=== PATIENT | female | born 1975 | race Caucasian/White ===

== ENCOUNTER → 2018-05-01 13:22 | Outpatient (CLI) | payer OTHER, SELFPAY ==
[2018-05-01 15:09] LABS: Free T3 5.1 pg/mL (2.18-3.98)
== END ==
PROVIDERS: Family Provider Family Medicine; PCP Family Medicine
DX: E03.9 Hypothyroidism, unspecified (principal)
CPT/HCPCS: 36415; 84481

== ENCOUNTER 2019-01-15 13:40 | Observation (INO) | payer OTHER, SELFPAY ==
[2019-01-15] VITALS (15 sets, daily range): BP systolic 126–186; BP diastolic 66–98; PULSE 71–91; RESP 10–20; TEMP 36.6–36.8; O2SAT 95–99; BMI 31.7; BMI 38.4
--- NOTE | 2019-01-15 13:49 | EKG12_ITS ---
Test Reason : REPEAT-CP Blood Pressure : / mmHG Vent. Rate : 081 BPM Atrial Rate : 081 BPM P-R Int : 134 ms QRS Dur : 084 ms QT Int : 388 ms P-R-T Axes : 051 015 029 degrees QTc Int : 450 ms Normal sinus rhythm Moderate voltage criteria for LVH, may be normal variant Borderline ECG Confirmed by ERIK DOMINGUEZ, MIRTHA ([id number]), desk editor MARIANA CLINTON ([id number]) on 01/20/2019 10:03:04 AM Referred By: Tiffani Nguyễn Confirmed By:MIRTHA VALENCIA MD
--- NOTE | 2019-01-15 14:00 | RAD_ITS ---
STUDY: X-RAY CHEST REASON FOR EXAM: Female, 43 years old. Mid chest pain. TECHNIQUE: Single AP portable view of the chest. COMPARISON: None. FINDINGS: EKG electrodes are seen. The lungs are clear and expanded. There is no demonstrated pleural abnormality. Normal size heart. Normal mediastinum and jody. Normal visualized pulmonary arteries. Normal visualized aortic arch and descending thoracic aorta. There are diffuse degenerative changes of the visualized thoracic spine. Normal visualized ribs, clavicles, and shoulders. There is no demonstrated abnormality of the visualized soft tissue structures of the upper abdomen. RAD/Chest 1 View (Portable) IMPRESSION: Normal x-ray examination of the chest. Electronically Signed: iVc Singleton, at 14:14 EDT , Service support ,
--- NOTE | 2019-01-15 14:04 | ED.DCSUM_ITS ---
- ER Visit Summary Date of Service: 01/15/19 Chief Complaint: Chest pain History of Present Illness: The patient is a 43 F with history of hypertension and valve problems presents to the emergency department chest pain. Patient states she was in her normal state of health. On Sunday evening, she had a s ubsternal heaviness that radiated into her back into her neck. She states it lasted about 2 hours. It then went away. She states that the symptoms returned today. She was feeling mildly short of breath. She denies any history of coronary vascular disease herself. There is a strong family history. She does not smoke. She states her blood pressure was also elevated at 190/100. She has not had any exertional pain up until today. She is otherwise been in her normal state of health. She is been compliant with her medications. Physical Examination: Vital signs reviewed General: Well-nourished, well-developed Head: Normocephalic, atraumatic Eyes: Pupils equal and reactive, extraocular muscles intact Neck, supple, no lymphadenopathy Heart: Regular rate and rhythm Respiratory: No distress, clear bilaterally Abdomen: Soft, nontender, nondistended, no peritoneal signs Back: Nontender Extremities: Nontender, no edema, no cords Skin: Normal color no rash Neuro: Alert and oriented, no focal or lateralizing deficits Test Results: [] Emergency Department Course and Treatment: EKG was obtained on patient arrival. There was some elevated voltage consistent with LVH. There was no acute ischemic change. The patient has had intermittent pain for 3 days. She is low risk, but not no risk. She has a heart score of 3. With one nitro, she is totally pain-free. Initial enzymes were negative. D-dimer was negative. I did discuss options with the patient. She wants to attempt outpatient therapy. I am going to do a repeat troponin testing at the 3-hour david. I do feel that this is negative, safely can safely be discharged with outpatient stress testing. She is comfortable with this plan of care. Treatment Plan: [] Disposition: Pending Impression: 1. Chest pain This note was generated with [employer] software. It may contain incorrect words, spelling, and punctuation that were not noted in review of the chart prior to signing ED Disposition - Plan for ED Patient: Instructions: ED Chest Pain Atypical Unkn Cause Referrals: Isai Fletcher, [Primary Care Provider] -
[2019-01-15 14:16] LABS: Absolute Lymphocyte Count 2.91 X10^3/ul (0.83-4.51); Absolute Neutrophil Count 4.1 X10^3/uL (2.0-7.7); Basophil# 0.02 X10^3/uL; Basophil% 0.3 % (0-1); Eosinophil# 0.17 X10^3/uL; Eosinophils% 2.2 % (0-5); Hemoglobin 13.7 g/dl (12.0-15.0); Lymphocyte # 2.91 X10^3/ul (4.0); Lymphocyte % 37.5 % (19-41); Mean Corp Hgb Conc 34.3 g/gl (32-36); Mean Corpuscular Volume 81.8 fL (81-99); Mean Platelet Vol. 9.5 fl (6.2-12.0); Monocyte# 0.52 X10^3/uL; Monocyte% 6.7 % (0-10); Neutrophil # 4.13 X10^3/uL (2.7-7.7); POSITIVE COUNT NO; POSITIVE DIFFERENTIAL NO; POSITIVE MORPHOLOGY NO; Platelet Count 300 K/mm3 (150-450); RBC Distribution Width CV 12.7 % (11.6-14.6); RBC Distribution Width SD 37.6 fl (35.1-43.9); Red Blood Count 4.89 M/mm3 (4.2-5.4); White Blood Count 7.8 K/mm3 (4.4-11.0)
[2019-01-15 14:27] LABS: Anion Gap 8 (5-15); BUN 10 mg/dL (7-18); BUN/Creat Ratio 16.2 RATIO (10-20); Chloride 107 mmol/L (98-107); Creatinine, Serum 0.62 mg/dL (0.55-1.02); EST Glomerular Filtration Rate 112 mL/min (>60); Est Glom Filt Rate - Afr Amer 136 mL/min (>60); Estimated Creatinine Clearance 119.24 ml/min; Glucose 108 mg/dL (74-106); Potassium 3.7 mmol/L (3.5-5.1); Sodium Level 142 mmol/L (136-145)
[2019-01-15 14:29] LABS: D-Dimer Quantitative (DVT/PE) 0.32 FEU/ug/m (0.27-0.49)
[2019-01-15] MEDS: Aspirin 81 MG TAB.CHEW 324 MG PO (14:45)
--- NOTE | 2019-01-15 14:50 | EKG12_ITS ---
Test Reason : CP Blood Pressure : / mmHG Vent. Rate : 088 BPM Atrial Rate : 088 BPM P-R Int : 126 ms QRS Dur : 092 ms QT Int : 352 ms P-R-T Axes : 062 023 044 degrees QTc Int : 425 ms Normal sinus rhythm Moderate voltage criteria for LVH, may be normal variant Borderline ECG Confirmed by ERIK DOMINGUEZ, MIRTHA ([id number]), features editor MARIANA CLINTON ([id number]) on 01/20/2019 10:16:39 AM Referred By: Tiffani Nguyễn Confirmed By:MIRTHA VALENCIA MD
[2019-01-15 14:52] LABS: BNP,B-Type NATRIURETIC PEPTIDE 26.2 pg/mL (0-100)
--- NOTE | 2019-01-15 20:37 | PCM.HP.STD ---
Problem List (1) Chest pain Status: Acute Qualifiers: Ischemic chest pain type: unspecified angina pectoris type (2) Hypertension Status: Chronic Qualifiers: Hypertension type: essential hypertension Qualified Code(s): I10 - Essential (primary) hypertension (3) Mitral valve prolapse Status: Chronic History of Present Illness Date of Admission: 01/15/19 Chief Complaint: chest pain The patient is a 43 year old F past medical history of hypertension, mitral valve prolapse who comes in with complaints of chest pain ongoing for 3 days. Patient used to follow Dr. Manrique has since been following the nurse practitioner. She comes in with complaints of chest pain that happened suddenly, radiated to both shoulders and her back, associated with some diaphoresis and nausea. Chest pain lasted for a few minutes and went away. It recurred several times between Sunday and the day of admission( over 3 days). Patient states that in between her blood pressure has been elevated. Denied any pain at the time of being seen. Vitals in the ED was blood pressure 186/90, pressure at time of the scene was 146/66, heart rate of 90, SPO2 was 97% on room air, temperature was 98F. Admitting blood work was unremarkable. Troponins were negative x2. 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 Denies: Claudication, Orthopnea, Palpitations, Paroxysmal Noc. Dyspnea, Syncope Respiratory: Denies: Cough, Hemoptysis, Shortness of Breath, Shortness of breath at rest, Shortness of breath upon exertion, Sputum production Gastrointestinal: Denies: Abdominal Pain, Constipation, Nausea, Vomiting Genitourinary: Denies: Dysuria, Frequency Musculoskeletal: Denies: Joint Pain, Joint stiffness, Joint swelling, Joint Tenderness Skin: Denies: Rash, Wounds Neurological: Denies: Difficulty swallowing, Focal weakness, Numbness, Tingling Psychiatric: Denies: Anxiety, Depression, Homicidal Ideations, Suicidal Ideations Hematologic/ Lymphatic: Denies: Easy Bruising, Easy Bleeding VTE Information - Inpt Only VTE Present on Admission: No VTE Pharm Prophylaxis ordered?: Yes Patient Problems: Active and Suspected Problems Chest pain (Acute) - Physical Exam General: Alert, Oriented x3, Cooperative, No apparent distress HEENT: Atraumatic, PERRLA, EOMI, Normocephalic Oral: Moist Mucosa Neck: Supple Lungs: Clear to auscultation, Normal air movement Cardiovascular: Regular rate, Regular Rhythm, Normal S1, Normal S2, No murmurs Abdomen: Bowel Sounds Present, Soft, Non Tender, Non-Distended, No Hepato-splenomegaly Extremities: No edema Skin: No rashes Musculoskeletal: No Tenderness to Palpation of Joints or Extremities Lymphatic: No Cervical, Supraclavicular, or Inguinal Adenopathy Neurological: Cranial nerves II-XII grossly intact, Neuro grossly intact Psych/Mental Status: Normal Affect, Appropriate Vital Signs Temp Pulse Resp BP Pulse Ox 98.2 F 71 18 146/66 H 96 01/15/19 20:04 01/15/19 20:04 01/15/19 20:04 01/15/19 20:04 01/15/19 20:04 Oxygen Flow Rate (L/min) 2 Oxygen Delivery Method Room Air Weight: 92.2 kg Body Mass Index (BMI) 38.4 Laboratory Tests Past 24 Hrs 01/15/19 01/15/19 01/15/19 14:00 14:00 14:00 WBC 7.8 RBC 4.89 Hgb 13.7 Hct 40.0 MCV 81.8 MCH 28.0 MCHC 34.3 RDW 12.7 RDW Differential 37.6 Plt Count 300 MPV 9.5 Immature Gran % (Auto) 0.300 Neut % (Auto) 53.0 Lymph % (Auto) 37.5 [place] % (Auto) 6.7 Eos % (Auto) 2.2 Baso % (Auto) 0.3 Absolute Neuts (auto) 4.1 Absolute Lymphs (auto) 2.91 Total Counted Not Reportable D-Dimer Quant (PE/DVT) 0.32 Sodium 142 Potassium 3.7 Chloride 107 Carbon Dioxide 27.0 Anion Gap 8 BUN 10 Creatinine 0.62 Estim Creat Clear Calc 119.24 Est GFR (MDRD) Af Amer 136 Est GFR (MDRD) Non-Af 112 BUN/Creatinine Ratio 16.2 Glucose 108 H Calcium 9.0 Troponin I < 0.015 B-Natriuretic Peptide 01/15/19 01/15/19 14:00 16:30 WBC RBC Hgb Hct MCV MCH MCHC RDW RDW Differential Plt Count MPV Immature Gran % (Auto) Neut % (Auto) Lymph % (Auto) [place] % (Auto) Eos % (Auto) Baso % (Auto) Absolute Neuts (auto) Absolute Lymphs (auto) Total Counted D-Dimer Quant (PE/DVT) Sodium Potassium Chloride Carbon Dioxide Anion Gap BUN Creatinine Estim Creat Clear Calc Est GFR (MDRD) Af Amer Est GFR (MDRD) Non-Af BUN/Creatinine Ratio Glucose Calcium Troponin I < 0.015 B-Natriuretic Peptide 26.2 Assessment/Plan All Active Problems Chest pain (Acute) 43 year old F past medical history of hypertension, mitral valve prolapse who comes in with complaints of chest pain ongoing for 3 days. 1. Chest pain, concerning for possible angina, EKG shows no acute ST changes, no history of CAD, Patient has history of valvular heart disease, troponins x2 is negative Plan: Admit to PCU, monitor on telemetry, stress test in a.m., aspirin 81 mg p.o. daily, continue on home metoprolol 2. Hypertension, uncontrolled on admission, fairly controlled on the floor, Continue on home metoprolol, continue to monitor vitals 3. Mitral valve prolapse, will get 2D echo 4. Hypothyroidism, on levothyroxine, will check TSH 5. DVT PPx- early ambulation Code Visit OBSV E&M: 22695 Initial observation care L3
--- NOTE | 2019-01-15 21:03 | ECHOD_ITS ---
Reason For Study: dyspnea/SOB Procedure This was a 2D Doppler, Color Flow transthoracic echocardiogram. Exam performed in department. Left Ventricle Normal size and thickness. The estimated ejection fraction is 65 %. Normal diastology for age. No regional wall motion abnormalities noted. Right Ventricle Mildly dilated right ventricle. Normal systolic function. Atria Normal left atrium. Normal right atrium. Normal atrial septum. Mitral Valve The mitral valve is structurally normal. No prolapse or stenosis seen. Trivial mitral valve insufficiency. Tricuspid Valve Normal tricuspid valve. Trivial tricuspid valve insufficiency. Aortic Valve Trisinus/trileaflet aortic valve. Normal aortic valve. Pulmonic Valve Normal pulmonic valve. Great Vessels Normal aortic root. Normal arch. Normal inferior vena cava. Inferior vena cava collapse with sniff. Pericardium/Pleural No pericardial effusion. MMode/2D Measurements & Calculations LVIDd: 5.0 cm IVSd: 1.2 cm Ao root diam: 2.9 cm LVIDs: 3.7 cm LVPWd: 0.87 cm RVDd: 4.0 cm FS: 26.2 % LAV(MOD-bp): 37.1 ml LA A4 area: 14.0 cm2 LA dimension(2D): 3.2 cm LAV(MOD-bp) Indexed: 19.5 ml/m2 LAV(MOD-sp2): 34.5 ml LAV(MOD-sp4): 35.4 ml RA A4 area: 12.3 cm2 Time Measurements MV dec time: 0.18 sec Doppler Measurements & Calculations MV E max lior: 97.1 cm/sec Lat Peak E' Lior: 10.4 cm/sec Med Peak E' Lior: 8.5 cm/sec MV A max lior: 87.7 cm/sec E/E' lat: 9.3 E/E' med: 11.4 MV E/A: 1.1 Ao V2 max: 105.6 cm/sec LV V1 max: 107.5 cm/sec PA V2 max: 116.2 cm/sec Ao max P.4 mmHg LV V1 max P.6 mmHg Ao V2 mean: 48.4 cm/sec Ao mean P.8 mmHg Ao V2 VTI: 11.6 cm Interpretation Summary The estimated ejection fraction is 65 %. Normal diastology for age. Trivial mitral valve insufficiency. Trivial tricuspid valve insufficiency. Mildly dilated right ventricle. There is no comparison study available. Ordering Physician: Tiffani Nguyễn Referring Physician: Isai Fletcher Performed By: Lorraine Cates RDCS, RVT
[2019-01-15] MEDS: Metoprolol Tartrate 25 MG Tablet PO (22:02)
[2019-01-15 22:06] LABS: Thyroid Stim Hormone (TSH) < 0.01 uIU/mL (0.358-3.74)
[2019-01-16] VITALS (8 sets, daily range): BP systolic 125–139; BP diastolic 66–83; PULSE 60–85; RESP 16–18; TEMP 36.3–37.1; O2SAT 96–99
[2019-01-16 03:04] LABS: Hematocrit 38.2 % (37-47); Hemoglobin 12.9 g/dl (12.0-15.0); Mean Corp Hgb Conc 33.8 g/gl (32-36); Mean Corpuscular Hgb 27.7 pg (27.0-32.0); Red Blood Count 4.66 M/mm3 (4.2-5.4); White Blood Count 8.2 K/mm3 (4.4-11.0)
[2019-01-16 03:05] LABS: Mean Platelet Vol. 9.3 fl (6.2-12.0); Platelet Count 268 K/mm3 (150-450); RBC Distribution Width CV 12.8 % (11.6-14.6); RBC Distribution Width SD 37.3 fl (35.1-43.9); Scan Indicated on CBC? Y/N NO
[2019-01-16 03:07] LABS: Prothrombin Time (Protime)PT. 12.8 SECONDS (11.7-14.9)
[2019-01-16 03:08] LABS: Partial Thromboplast Time 28.1 Seconds (24.1-36.2)
[2019-01-16 03:59] LABS: Anion Gap 6 (5-15); BUN 13 mg/dL (7-18); BUN/Creat Ratio 31.8 RATIO (10-20); Calcium,Total 8.6 mg/dL (8.5-10.1); Chloride 109 mmol/L (98-107); Creatinine, Serum 0.41 mg/dL (0.55-1.02); EST Glomerular Filtration Rate 181 mL/min (>60); Est Glom Filt Rate - Afr Amer 219 mL/min (>60); Estimated Creatinine Clearance 134.88 ml/min; Glucose 115 mg/dL (74-106); Potassium 3.6 mmol/L (3.5-5.1); Sodium Level 142 mmol/L (136-145)
[2019-01-16] MEDS: Thyroid 60 MG Tablet 240 MG PO (05:42)
[2019-01-16] MEDS: Aspirin 81 MG TAB.CHEW PO (05:43)
--- NOTE | 2019-01-16 05:55 | EKG12_ITS ---
Test Reason : AM EKG Blood Pressure : / mmHG Vent. Rate : 073 BPM Atrial Rate : 073 BPM P-R Int : 140 ms QRS Dur : 086 ms QT Int : 424 ms P-R-T Axes : 052 031 039 degrees QTc Int : 467 ms Normal sinus rhythm Possible Lateral infarct , age undetermined , cannot be excluded Abnormal ECG Confirmed by ERIK DOMINGUEZ, MIRTHA ([id number]), supervising editor trailer MARIANA CLINTON ([id number]) on 01/20/2019 10:55:42 AM Referred By: Tiffani Nguyễn Confirmed By:MIRTHA VALENCIA MD
[2019-01-16 10:03] LABS: Free T3 3.1 pg/mL (2.18-3.98); T4 Free Direct 1.11 ng/dL (0.76-1.46)
--- NOTE | 2019-01-16 10:19 | STRESSREP ---
Stress Test Report Date: 01-16-19 Procedure: Exercise tolerance test/imaging study Indications: Chest pain Consent: Per the patient Procedure: The patient exercised on a Hank protocol for 1 minute not completing stage I achieving a peak heart rate of 130 bpm (73 % predicted maximal heart rate) with a peak blood pressure 164/92 mmHg and a peak MET capacity of 3 METs. The baseline ECG demonstrated normal sinus rhythm. The peak exercise ECG demonstrated no obvious ECG changes. There were no cardiac dysrhythmias pretest, during exercise, or recovery. The functional capacity was considered based. There was chest discomfort preprocedure, during exercise, and in recovery without significant change. The examination was discontinued secondary to light headed. Impression: 1. Technically adequate (percent predicted maximal heart rate greater than 85%) exercise tolerance test 2. Peak exercise ECG with no obvious ECG changes 3. There were no cardiac dysrhythmias pretest, during exercise, or recovery 4. Pharmacologic (Regadenoson) evaluation pending Procedure: Pharmacologic stress nuclear imaging study Consent: Per the patient Procedure: The patient underwent pharmacologic (Regadenoson) evaluation with a peak heart rate of 136 beats per minute (76 %predicted maximal heart rate) and a peak blood pressure of 158/82 mmHg. The baseline ECG demonstrated normal sinus rhythm. The peak pharmacologic ECG demonstrated no obvious ECG changes. There were no cardiac dysrhythmias pretest, during pharmacologic infusion, or recovery. The patient noted chest discomfort preprocedure, during infusion, and during recovery without significant change. The examination was discontinued secondary to completion of protocol. Impression: 1. Pharmacologic (Regadenoson) evaluation 2. Peak pharmacologic ECG with no obvious ECG changes. 3. There were no cardiac dysrhythmias pretest, during pharmacologic infusion, or recovery. 4. Nuclear images pending Myocardial perfusion imaging study: Technique: The patient was injected with 11.5 millicuries of technetium 99m Cardiolite and subsequently rest SPECT Cardiolite nuclear imaging was obtained in the horizontal long, vertical long, and short axis views. The patient exercised on a Hank protocol for 1 minute not completing stage I achieving a peak heart rate of 130 bpm (73 % predicted maximal heart rate) with a peak blood pressure 164/92 mmHg and a peak MET capacity of 3 METs. The patient underwent pharmacologic (Regadenoson) evaluation with a peak heart rate of 136 beats per minute (76 %predicted maximal heart rate) and a peak blood pressure of 158/82 mmHg. The patient was injected with 35.4 millicuries of technetium 99m Cardiolite and subsequently stress SPECT Cardiolite nuclear imaging was obtained in the horizontal long, vertical long, and short axis views. A gated Cardiolite study at peak stress was obtained. Interpretation: Rest and stress SPECT Cardiolite nuclear imaging status post realignment, normalization, and attenuation correction demonstrate a small area of subtle diminished tracer uptake near the apical segments without significant change between rest and stress. There is end systolic thickening and brightening. The gated Cardiolite study demonstrates myocardial thickening and inward wall motion. The reported LVEF is 70 %. Impression: 1. Rest and stress SPECT Cardiolite nuclear imaging demonstrate a small area of subtle diminished tracer uptake in the apical segments without significant change between rest and stress appearing compatible with physiologic apical thinning with no myocardial perfusion changes consider diagnostic for associated stress-induced myocardial ischemia. 2. The gated Cardiolite study reports an LVEF of 70 %. This note was generated with [employer] software. It may contain incorrect words, spelling, and punctuation that were not noted in checking the note before signing. Myocardial perfusion imaging study: Technique: The patient was injected with mCi of technetium 99m Cardiolite and subsequently rest SPECT Cardiolite nuclear imaging was obtained in the horizontal long, vertical long, and short axis views. The patient exercised on a Hank protocol for minutes completing stage achieving a peak heart rate of bpm (% predicted maximal heart rate) with a peak blood pressure mmHg and a peak MET capacity of METs. The patient was injected with mCi of technetium 99m Cardiolite and subsequently stress SPECT Cardiolite nuclear imaging was obtained in the horizontal long, vertical long, and short axis views. A gated Cardiolite study at peak stress was obtained. Interpretation: Rest and stress SPECT Cardiolite nuclear imaging status post realignment, normalization, and attenuation correction, demonstrates the appearance of relative uniform tracer uptake and myocardial perfusion appearing within normal limits. There is end systolic thickening and brightening. The gated Cardiolite study demonstrates myocardial thickening and inward wall motion. The reported LVEF is %. Impression: 1. Rest and stress SPECT Cardiolite nuclear imaging demonstrate relative uniform tracer uptake and myocardial perfusion appearing within normal limits. 2. The gated Cardiolite study reports an LVEF of %. This note was generated with [employer] software. It may contain incorrect words, spelling, and punctuation that were not noted in checking the note before signing.
--- NOTE | 2019-01-16 11:08 | DCINST_ITS ---
- Discharge Diagnoses Current Active Problems: Current Active and Chronic Problems Chest pain (Acute) Hypertension (Chronic) Mitral valve prolapse (Chronic) You will use the following diet at home:: Cardiac Your food should be the consistency of: Regular Your liquids should be the consistency of: Regular/Thin Discharge Activity: Return to Normal Activity Instructions: ED Chest Pain Atypical Unkn Cause Allergies/Adverse Reactions: Allergies Penicillins [PCN] Allergy (Verified 01/15/19 13:41) Rash Medications to take at Discharge Metoprolol Tartrate 25 tab PO QHS 01/15/19 Metoprolol Tartrate 37.5 tab PO DAILY 01/15/19 Thyroid,Pork [[place] Thyroid] 240 mg PO DAILY 01/15/19 Primary Care Physician: Isai Fletcher DO [Primary Care Provider] - Please follow up with your Primary Care Physician in: 1-2 weeks Test Results: Test results from this visit will be discussed in further detail at your follow- up appointment, if applicable. Proposed Discharge Date: 01/16/19
[2019-01-16] MEDS: Metoprolol Tartrate 25 MG Tablet 37.5 MG PO (11:53)
--- NOTE | 2019-01-16 13:28 | DS.PCM_ITS ---
<Tree Bashir - Last Filed: 01/16/19 13:24> Discharge Date and Diagnosis - Problem List Patient Problems: Active and Suspected Problems Chest pain (Acute) Date of Admission: 01/15/19 Date of Discharge: 01/16/19 - Primary Discharge Diagnosis Active and Suspected Problems Chest pain (Acute) -musculoskeletal HTN Obesity Mitral valve prolapse Hypothyroidism - Secondary Discharge Diagnosis Chronic Problems Hypertension (Chronic) Mitral valve prolapse (Chronic) Hospital Course and Treatment Imaging Results: 01/16/19 05:55 Nuclear Stress Test - Chemical [NM] AM (NON MEDS) Impression: 1. Rest and stress SPECT Cardiolite nuclear imaging demonstrate a small area of subtle diminished tracer uptake in the apical segments without significant change between rest and stress appearing compatible with physiologic apical thinning with no myocardial perfusion changes consider diagnostic for associated stress-induced myocardial ischemia. 2. The gated Cardiolite study reports an LVEF of 70 %. Echo: Interpretation Summary The estimated ejection fraction is 65 %. Normal diastology for age. Trivial mitral valve insufficiency. Trivial tricuspid valve insufficiency. Mildly dilated right ventricle. There is no comparison study available. RAD/Chest 1 View (Portable) IMPRESSION: Normal x-ray examination of the chest. Operations: None Procedures: 2-D Echocardiogram, Stress test Summary of Care Provided: Hospital course: The patient is a 43 year old F with past medical history of hypertension, mitral valve prolapse, hypothyroidism, who presented to the emergency room with complaints of chest pain for 3 days. She described it as a pressure that radiated from her midsternal region into her bilateral shoulders, back, and down the left arm. It would come and go over 3 days, and was also associated with some lightheadedness, diaphoresis, nausea, and shortness of breath especially with exertion. In the emergency room she had a negative chest x-ray, negative troponin, negative d-dimer, negative EKG. She was admitted for chest pain workup, placed on telemetry, troponins were repeated. No events on telemetry, troponins remain negative. TSH was suppressed however her free T3 and 4 were normal. BNP was negative. Stress test the following day was negative. She underwent an echocardiogram given her underlying history of mitral valve prolapse-this demonstrated no prolapse, trivial mitral valve insufficiency. Otherwise relatively normal as above. She was discharged home in stable condition. She will need to follow-up with her PCP in 1-2 weeks. This patient was seen by Tree Bashir PA-C under the supervision of Doctor Shayla. [] Patient Problems: Active and Suspected Problems Chest pain (Acute) - Physical Exam Cardiovascular: Murmur - 2/6 systolic murmur heard best alone left 4th intercostal space. Psych/Mental Status: Normal Affect, Alert and oriented to time, place, person, mood and affect Vital Signs Temp Pulse Resp BP Pulse Ox 98.7 F 79 16 139/83 H 99 01/16/19 11:32 01/16/19 11:53 01/16/19 11:32 01/16/19 11:32 01/16/19 11:32 Oxygen Flow Rate (L/min) 2 Oxygen Delivery Method Room Air Weight: 203 lb 4.259 oz Body Mass Index (BMI) 38.4 Intake and Output for Last 24 Hours 01/14/19 01/15/19 01/16/19 23:59 23:59 23:59 Intake Total 480 / 480 250 / 250 Balance 480 / 480 250 / 250 Laboratory Tests Past 24 Hrs 01/15/19 01/15/19 01/15/19 14:00 14:00 14:00 WBC 7.8 RBC 4.89 Hgb 13.7 Hct 40.0 MCV 81.8 MCH 28.0 MCHC 34.3 RDW 12.7 RDW Differential 37.6 Plt Count 300 MPV 9.5 Immature Gran % (Auto) 0.300 Neut % (Auto) 53.0 Lymph % (Auto) 37.5 [place] % (Auto) 6.7 Eos % (Auto) 2.2 Baso % (Auto) 0.3 Absolute Neuts (auto) 4.1 Absolute Lymphs (auto) 2.91 Total Counted Not Reportable PT INR APTT D-Dimer Quant (PE/DVT) 0.32 Sodium 142 Potassium 3.7 Chloride 107 Carbon Dioxide 27.0 Anion Gap 8 BUN 10 Creatinine 0.62 Estim Creat Clear Calc 119.24 Est GFR (MDRD) Af Amer 136 Est GFR (MDRD) Non-Af 112 BUN/Creatinine Ratio 16.2 Glucose 108 H Calcium 9.0 Troponin I < 0.015 B-Natriuretic Peptide TSH Free T4 Free T3 pg/dL 01/15/19 01/15/19 01/15/19 14:00 16:30 21:06 WBC RBC Hgb Hct MCV MCH MCHC RDW RDW Differential Plt Count MPV Immature Gran % (Auto) Neut % (Auto) Lymph % (Auto) [place] % (Auto) Eos % (Auto) Baso % (Auto) Absolute Neuts (auto) Absolute Lymphs (auto) Total Counted PT INR APTT D-Dimer Quant (PE/DVT) Sodium Potassium Chloride Carbon Dioxide Anion Gap BUN Creatinine Estim Creat Clear Calc Est GFR (MDRD) Af Amer Est GFR (MDRD) Non-Af BUN/Creatinine Ratio Glucose Calcium Troponin I < 0.015 < 0.015 B-Natriuretic Peptide 26.2 TSH < 0.01 L Free T4 Free T3 pg/dL 01/16/19 01/16/19 01/16/19 00:10 02:43 02:43 WBC RBC Hgb Hct MCV MCH MCHC RDW RDW Differential Plt Count MPV Immature Gran % (Auto) Neut % (Auto) Lymph % (Auto) [place] % (Auto) Eos % (Auto) Baso % (Auto) Absolute Neuts (auto) Absolute Lymphs (auto) Total Counted PT INR APTT D-Dimer Quant (PE/DVT) Sodium 142 Potassium 3.6 Chloride 109 H Carbon Dioxide 27.0 Anion Gap 6 BUN 13 Creatinine 0.41 L Estim Creat Clear Calc 134.88 Est GFR (MDRD) Af Amer 219 Est GFR (MDRD) Non-Af 181 BUN/Creatinine Ratio 31.8 H Glucose 115 H Calcium 8.6 Troponin I < 0.015 < 0.015 B-Natriuretic Peptide TSH Free T4 Free T3 pg/dL 01/16/19 01/16/19 01/16/19 02:43 02:43 02:43 WBC 8.2 RBC 4.66 Hgb 12.9 Hct 38.2 MCV 82.0 MCH 27.7 MCHC 33.8 RDW 12.8 RDW Differential 37.3 Plt Count 268 MPV 9.3 Immature Gran % (Auto) Neut % (Auto) Lymph % (Auto) [place] % (Auto) Eos % (Auto) Baso % (Auto) Absolute Neuts (auto) Absolute Lymphs (auto) Total Counted PT 12.8 INR 1.0 APTT 28.1 D-Dimer Quant (PE/DVT) Sodium Potassium Chloride Carbon Dioxide Anion Gap BUN Creatinine Estim Creat Clear Calc Est GFR (MDRD) Af Amer Est GFR (MDRD) Non-Af BUN/Creatinine Ratio Glucose Calcium Troponin I B-Natriuretic Peptide TSH Free T4 1.11 Free T3 pg/dL 3.1 Discharge Diet: Low fat/ Low Cholesterol, 2000 mg Sodium Diet Discharge Activity: Return to Normal Activity Home Medications: Medications to take at Discharge Metoprolol Tartrate 25 tab PO QHS 01/15/19 Metoprolol Tartrate 37.5 tab PO DAILY 01/15/19 Thyroid,Pork [[place] Thyroid] 240 mg PO DAILY 01/15/19 Primary Care Physician: Isai Fletcher DO [Primary Care Provider] - Please follow up with your Primary Care Physician in: 1-2 weeks Patient Instructions: ED Chest Pain Atypical Unkn Cause Disposition: Home Minutes spent on discharge:: 35 Patient Condition:: Stable Medical Necessity - Tobacco Use Smoking Status: Never smoker Tobacco Use: Non-smoker Meaningful Use Info Meaningful Use Diagnoses (Choose all that apply): None applicable <David Mcguire - Last Filed: 01/16/19 14:14> Discharge Date and Diagnosis - Primary Discharge Diagnosis Active and Suspected Problems Chest pain (Acute) - Secondary Discharge Diagnosis Chronic Problems Hypertension (Chronic) Mitral valve prolapse (Chronic) Hospital Course and Treatment Imaging Results: 01/16/19 05:55 Nuclear Stress Test - Chemical [NM] AM (NON MEDS) Procedures: 2-D Echocardiogram, Stress test Summary of Care Provided: Patient seen and examined independently. Data reviewed. I agree with the above note by the physician assistant news director. The patient is a 43 year old F presents with chest pain. D-dimer is negative and stress test was negative. Not cardiac and not due to PE. No pneumonia on x-ray to explain the pleuritic type of nature but patient reassured that this is not cardiac nor PE and a cardiac catheterization was not indicated. Patient was inquiring why she is so fatigued. Explained I could not provide concrete answer for her at this time but did recommend further follow-up. Since this is been ongoing for some time. Did inquire the patient is never had a polysomnogram, to which patient says she has not. I advised patient follow-up with her primary care doctor to see if she should be further evaluated for a polysomnogram. Unclear if patient has untreated sleep apnea that may be causing some of her fatigue but certainly polysomnogram may be helpful to at least rule that in or out as a possibility. [] - Physical Exam General: Alert, No apparent distress HEENT: Atraumatic, Normocephalic Oral: Moist Mucosa, No Gingival or Mucosal Lesions/ Ulcerations Neck: No Nodes, Thyroid Normal Size and Texture Lungs: Clear to auscultation, Normal air movement, No rhonchi, No wheeze Cardiovascular: Regular rate, Regular Rhythm, Normal S1, Normal S2, No murmurs, Murmur Abdomen: Bowel Sounds Present, Soft, Non Tender, Non-Distended, No Hepato- splenomegaly Extremities: No edema, No Calf Tenderness Psych/Mental Status: Normal Affect Vital Signs Temp Pulse Resp BP Pulse Ox 37.1 C 79 16 139/83 H 99 01/16/19 11:32 01/16/19 11:53 01/16/19 11:32 01/16/19 11:32 01/16/19 11:32 Oxygen Flow Rate (L/min) 2 Oxygen Delivery Method Room Air Weight: 92.2 kg Body Mass Index (BMI) 38.4 Intake and Output for Last 24 Hours 01/14/19 01/15/19 01/16/19 23:59 23:59 23:59 Intake Total 480 / 480 250 / 250 Balance 480 / 480 250 / 250 Laboratory Tests Past 24 Hrs 01/15/19 01/15/19 01/15/19 14:00 14:00 14:00 WBC 7.8 RBC 4.89 Hgb 13.7 Hct 40.0 MCV 81.8 MCH 28.0 MCHC 34.3 RDW 12.7 RDW Differential 37.6 Plt Count 300 MPV 9.5 Immature Gran % (Auto) 0.300 Neut % (Auto) 53.0 Lymph % (Auto) 37.5 [place] % (Auto) 6.7 Eos % (Auto) 2.2 Baso % (Auto) 0.3 Absolute Neuts (auto) 4.1 Absolute Lymphs (auto) 2.91 Total Counted Not Reportable PT INR APTT D-Dimer Quant (PE/DVT) 0.32 Sodium 142 Potassium 3.7 Chloride 107 Carbon Dioxide 27.0 Anion Gap 8 BUN 10 Creatinine 0.62 Estim Creat Clear Calc 119.24 Est GFR (MDRD) Af Amer 136 Est GFR (MDRD) Non-Af 112 BUN/Creatinine Ratio 16.2 Glucose 108 H Calcium 9.0 Troponin I < 0.015 B-Natriuretic Peptide TSH Free T4 Free T3 pg/dL 01/15/19 01/15/19 01/15/19 14:00 16:30 21:06 WBC RBC Hgb Hct MCV MCH MCHC RDW RDW Differential Plt Count MPV Immature Gran % (Auto) Neut % (Auto) Lymph % (Auto) [place] % (Auto) Eos % (Auto) Baso % (Auto) Absolute Neuts (auto) Absolute Lymphs (auto) Total Counted PT INR APTT D-Dimer Quant (PE/DVT) Sodium Potassium Chloride Carbon Dioxide Anion Gap BUN Creatinine Estim Creat Clear Calc Est GFR (MDRD) Af Amer Est GFR (MDRD) Non-Af BUN/Creatinine Ratio Glucose Calcium Troponin I < 0.015 < 0.015 B-Natriuretic Peptide 26.2 TSH < 0.01 L Free T4 Free T3 pg/dL 01/16/19 01/16/19 01/16/19 00:10 02:43 02:43 WBC RBC Hgb Hct MCV MCH MCHC RDW RDW Differential Plt Count MPV Immature Gran % (Auto) Neut % (Auto) Lymph % (Auto) [place] % (Auto) Eos % (Auto) Baso % (Auto) Absolute Neuts (auto) Absolute Lymphs (auto) Total Counted PT INR APTT D-Dimer Quant (PE/DVT) Sodium 142 Potassium 3.6 Chloride 109 H Carbon Dioxide 27.0 Anion Gap 6 BUN 13 Creatinine 0.41 L Estim Creat Clear Calc 134.88 Est GFR (MDRD) Af Amer 219 Est GFR (MDRD) Non-Af 181 BUN/Creatinine Ratio 31.8 H Glucose 115 H Calcium 8.6 Troponin I < 0.015 < 0.015 B-Natriuretic Peptide TSH Free T4 Free T3 pg/dL 01/16/19 01/16/19 01/16/19 02:43 02:43 02:43 WBC 8.2 RBC 4.66 Hgb 12.9 Hct 38.2 MCV 82.0 MCH 27.7 MCHC 33.8 RDW 12.8 RDW Differential 37.3 Plt Count 268 MPV 9.3 Immature Gran % (Auto) Neut % (Auto) Lymph % (Auto) [place] % (Auto) Eos % (Auto) Baso % (Auto) Absolute Neuts (auto) Absolute Lymphs (auto) Total Counted PT 12.8 INR 1.0 APTT 28.1 D-Dimer Quant (PE/DVT) Sodium Potassium Chloride Carbon Dioxide Anion Gap BUN Creatinine Estim Creat Clear Calc Est GFR (MDRD) Af Amer Est GFR (MDRD) Non-Af BUN/Creatinine Ratio Glucose Calcium Troponin I B-Natriuretic Peptide TSH Free T4 1.11 Free T3 pg/dL 3.1 Discharge Diet: Low fat/ Low Cholesterol, 2000 mg Sodium Diet Discharge Activity: Return to Normal Activity Disposition: Home Patient Condition:: Stable Medical Necessity - Tobacco Use Smoking Status: Never smoker Tobacco Use: Non-smoker Meaningful Use Info Meaningful Use Diagnoses (Choose all that apply): None applicable Code Visit OBSV E&M: 14990 Observation care discharge
--- NOTE | 2019-01-16 19:00 | NURSING ---
patient care and medical safety director by SN Hallie, done under the supervision of this RN.
== END 2019-01-16 11:08 | disposition home or self-care (01) ==
LOC: ED 14:46 → PCU 19:20
PROVIDERS: Physician Assistant; Admitting Provider Internal Medicine; Emergency Provider Emergency Medicine; Family Provider Family Medicine; PCP Family Medicine; Referring Provider Internal Medicine
DX: R07.89 Other chest pain (principal); I10 Essential (primary) hypertension; Z79.899 Other long term (current) drug therapy; R06.02 Shortness of breath; Z82.49 Family history of ischemic heart disease and other diseases of the circulatory system; E03.9 Hypothyroidism, unspecified; I08.1 Rheumatic disorders of both mitral and tricuspid valves
CPT/HCPCS: 36415; 71045; 78452; 80048; 83880; 84439; 84443; 84481; 84484; 85025; 85027; 85379; 85610; 85730; 93005; 93017; 93306; 99218; 99285; A9500; A4216; G0378; J2785

== ENCOUNTER 2019-01-18 19:42 | Emergency (ER) | payer OTHER, SELFPAY ==
[2019-01-15 19:50] VITALS: BMI 38.4
[2019-01-18 19:44] VITALS: BP 156/89; PULSE 85; RESP 12; TEMP 36.6; O2SAT 98; BMI 40.6
--- NOTE | 2019-01-18 19:45 | ED.RN ---
called for ekg per rn request, pulled old ekgs for
--- NOTE | 2019-01-18 20:14 | EKG12_ITS ---
Test Reason : CP Blood Pressure : / mmHG Vent. Rate : 079 BPM Atrial Rate : 079 BPM P-R Int : 142 ms QRS Dur : 088 ms QT Int : 374 ms P-R-T Axes : 048 006 023 degrees QTc Int : 428 ms Normal sinus rhythm Voltage criteria for left ventricular hypertrophy Abnormal ECG Confirmed by ERIK DOMINGUEZ, MIRTHA ([id number]), advertising editor MARIANA CLINTON ([id number]) on 01/22/2019 1:18:00 PM Referred By: /ES Confirmed By:MIRTHA VALENCIA MD
--- NOTE | 2019-01-18 20:14 | RAD_ITS ---
STUDY: X-RAY CHEST REASON FOR EXAM: Female, 43 years old. Chest pain. TECHNIQUE: Single frontal view of the chest. COMPARISON: January 15, 2019 FINDINGS: The lungs are clear and expanded. There is no demonstrated pleural abnormality. Normal size heart. Normal mediastinum and jody. Normal visualized pulmonary arteries. Normal visualized aortic arch and descending thoracic aorta. Normal visualized thoracic spine. Normal visualized ribs, clavicles, and shoulders. There is no demonstrated abnormality of the visualized soft tissue structures of the upper abdomen. RAD/Chest 1 View (Portable) IMPRESSION: Normal x-ray examination of the chest. Electronically Signed: Toña Espinoza MD at 20:48 EDT Tel , Service support ,
[2019-01-18 20:28] LABS: Absolute Lymphocyte Count 4.02 X10^3/ul (0.83-4.51); Absolute Neutrophil Count 4.7 X10^3/uL (2.0-7.7); Basophil# 0.03 X10^3/uL; Basophil% 0.3 % (0-1); Eosinophils% 2.1 % (0-5); Hematocrit 39.8 % (37-47); Hemoglobin 13.8 g/dl (12.0-15.0); Lymphocyte # 4.02 X10^3/ul (4.0); Lymphocyte % 42.1 % (19-41); Mean Corp Hgb Conc 34.7 g/gl (32-36); Mean Corpuscular Hgb 28.2 pg (27.0-32.0); Mean Corpuscular Volume 81.4 fL (81-99); Mean Platelet Vol. 9.6 fl (6.2-12.0); Monocyte# 0.64 X10^3/uL; Monocyte% 6.7 % (0-10); Neutrophil # 4.65 X10^3/uL (2.7-7.7); Neutrophil % 48.6 % (47-70); Platelet Count 281 K/mm3 (150-450); RBC Distribution Width CV 12.4 % (11.6-14.6); RBC Distribution Width SD 36.5 fl (35.1-43.9); Red Blood Count 4.89 M/mm3 (4.2-5.4); White Blood Count 9.6 K/mm3 (4.4-11.0)
[2019-01-18 20:29] LABS: POSITIVE COUNT NO; POSITIVE DIFFERENTIAL NO; POSITIVE MORPHOLOGY NO
[2019-01-18 20:32] LABS: International Normalized Ratio 0.9; Prothrombin Time (Protime)PT. 12.2 SECONDS (11.7-14.9)
[2019-01-18 20:33] LABS: Partial Thromboplast Time 28.2 Seconds (24.1-36.2)
[2019-01-18 20:36] LABS: D-Dimer Quantitative (DVT/PE) < 0.27 FEU/ug/m (0.27-0.49)
--- NOTE | 2019-01-18 20:43 | ED.RN ---
DR HEBETR NOTIFIED PT C/O FEELING LIGHT HEADED
--- NOTE | 2019-01-18 20:44 | ED.DCSUM_ITS ---
- ER Visit Summary Date of Service: 01/18/19 Chief Complaint: Chest pain and weakness History of Present Illness: The patient is a 43 F who presents with chest pain and weakness that became worse again today. Patient was recently admitted to the hospital and had a stress test which was normal. Patient states she did have difficulty on the treadmill during the stress test. Patient describes her pain as a heaviness and burning. Patient states this is over the substernal area. Patient admits to nausea but denies any vomiting. Patient admits to some shortness of breath and lightheadedness. Patient also admits to some palpitations. Patient denies any PE risk factors. Patient has a history of hyp ertension and a family history of coronary artery disease. Physical Examination: Vital signs are stable. Patient is afebrile. Patient is in no acute distress. Oral mucosa is pink and moist. Neck is supple. Trachea is midline. There is no JVD noted. Heart was regular rate and rhythm. Lungs are clear and equal bilateral. Abdomen is soft. Bowel sounds are normal. Ther e is no tenderness. There is no guarding noted. Skin is warm dry. Cranial nerves II through XII are intact. There are no focal motor or sensory deficits noted. The remaining physical exam is within normal limits. Test Results: EKG showed normal sinus rhythm with a rate of 79. There are no acute ST or T wave changes. This was unchanged compared to previous EKG dated 01/15/2019. Chest x-ray does not show any acute cardiopulmonary process. CBC was normal. Basic metabolic profile was essentially normal. PT with INR and PTT were normal. Troponin and d-dimer were normal. TSH was less than 0.01. This was similar to prior results when she was admitted to the hospital recently. Discharge summary indicates that a T3 and T4 were obtained during her last visit which were normal. Emergency Department Course and Treatment: Patient was given aspirin here. On reevaluation the patient stated she felt like she gets lightheaded whenever she moves her head. Patient was given a dose of meclizine here. Patient was advised of her lab and x-ray results. Patient was instructed to follow-up with her various exceptionalities teacher for further evaluation of her thyroid. Since the patient was recently admitted and had a recent stress test, I do not feel patient requires readmission at this time. Patient and family understood and were agr eeable with the plan. All questions were answered. Disposition: Discharge home Impression: Chest pain This note was generated with [employer] dictation software. It may contain incorrect words, spelling, and punctuation that were not noted in review of the chart prior to signing ED Disposition - Plan for ED Patient: Disposition: Home or Assisted Living Diagnosis: Chest pain Instructions: ED Chest Pain Atypical Unkn Cause Referrals: Isai Fletcher, [Primary Care Provider] - 3-5 Days Additional Instructions: Also follow-up with your various exceptionalities teacher in 3-5 days.
[2019-01-18 20:46] VITALS: BP 170/61; PULSE 78; RESP 17; O2SAT 99
[2019-01-18 21:08] VITALS: BP 145/88; PULSE 79; RESP 19; O2SAT 100
[2019-01-18 21:49] LABS: BUN 11 mg/dL (7-18); Creatinine, Serum 0.53 mg/dL (0.55-1.02); Estimated Creatinine Clearance 99.32 ml/min; Glucose 108 mg/dL (74-106)
[2019-01-18 21:50] LABS: Anion Gap 8 (5-15); BUN/Creat Ratio 20.7 RATIO (10-20); Calcium,Total 8.9 mg/dL (8.5-10.1); Chloride 108 mmol/L (98-107); EST Glomerular Filtration Rate 134 mL/min (>60); Est Glom Filt Rate - Afr Amer 162 mL/min (>60); Potassium 3.4 mmol/L (3.5-5.1); Sodium Level 143 mmol/L (136-145); Thyroid Stim Hormone (TSH) < 0.01 uIU/mL (0.358-3.74)
[2019-01-18 22:10] VITALS: BP 160/63; PULSE 86; RESP 15; O2SAT 98
[2019-01-18 23:01] VITALS: BP 141/82; PULSE 82; RESP 14; O2SAT 96
[2019-01-18] MEDS: Meclizine HCl 25 MG Tablet PO (23:01)
[2019-01-18 23:26] VITALS: BP 154/79; PULSE 82; RESP 20; O2SAT 97
--- NOTE | 2019-01-18 23:27 | ED.RN ---
THIS NURSE REVIEWED D/C INSTRUCTIONS WITH PT AND . PT VERBALIZED UNDERSTANDING OF INSTRUCTIONS. IV D/C. IV CATHETER INTACT. PT TOLERATED WELL. PT DENIES FURTHER NEEDS OR QUESTIONS AT THIS TIME.
== END 2019-01-18 23:28 | disposition home or self-care (01) ==
PROVIDERS: Emergency Provider Emergency Medicine; Family Provider Family Medicine; PCP Family Medicine
DX: R07.9 Chest pain, unspecified (principal); R42 Dizziness and giddiness; I10 Essential (primary) hypertension; I38 Endocarditis, valve unspecified; Z79.899 Other long term (current) drug therapy; Z82.49 Family history of ischemic heart disease and other diseases of the circulatory system
CPT/HCPCS: 71045; 80048; 84443; 84484; 85025; 85379; 85610; 85730; 93005; 99285; J7030; A4216

== ENCOUNTER → 2019-01-22 16:33 | Outpatient (CLI) | payer OTHER, SELFPAY ==
[2019-01-18 19:44] VITALS: BMI 40.6
[2019-01-22 18:08] LABS: Erythrocyte Sedimentation Rate 14 mm/hr (0-20)
[2019-01-22 18:09] LABS: CRP, High Sensitivity Cardiac 4.25 mg/L
[2019-01-24 13:00] LABS: ANTINUCLEAR ANTIBODIES DIRECT Negative (Negative)
== END ==
PROVIDERS: Family Provider Family Medicine; PCP Family Medicine; Referring Provider Nurse Practitioner Family; Visit Provider Nurse Practitioner Family
DX: R53.83 Other fatigue (principal)
CPT/HCPCS: 36415; 85652; 86038; 86141

== ENCOUNTER → 2019-05-22 11:09 | Outpatient (CLI) | payer OTHER, SELFPAY ==
[2019-05-22 12:25] LABS: T4 Free Direct 1.09 ng/dL (0.76-1.46); Thyroid Stim Hormone (TSH) 0.39 uIU/mL (0.358-3.74)
== END ==
PROVIDERS: Family Provider Family Medicine; PCP Family Medicine; Referring Provider Nurse Practitioner Family; Visit Provider Nurse Practitioner Family
DX: E03.9 Hypothyroidism, unspecified (principal)
CPT/HCPCS: 36415; 84439; 84443

== ENCOUNTER → 2019-08-13 10:06 | Outpatient (CLI) | payer OTHER, SELFPAY ==
[2019-08-13 10:51] LABS: AST(SGOT) 15 U/L (15-37); Alanine Aminotransfer ALT/SGPT 35 U/L (13-56); Alkaline Phosphatase 55 U/L (45-117); Bilirubin, Direct 0.15 mg/dL (0.00-0.30); Free T3 2.3 pg/mL (2.18-3.98); GGTP 12 U/L (5-55); Globulin 3.5 g/dL (2.2-4.2); Protein, Total 7.5 g/dL (6.4-8.2); T4 Free Direct 1.01 ng/dL (0.76-1.46); Thyroid Stim Hormone (TSH) 0.57 uIU/mL (0.358-3.74)
== END ==
PROVIDERS: Family Provider Internal Medicine; PCP Internal Medicine; Referring Provider Internal Medicine; Visit Provider Internal Medicine
DX: E03.9 Hypothyroidism, unspecified (principal); R74.8 Abnormal levels of other serum enzymes
CPT/HCPCS: 36415; 80076; 82977; 84439; 84443; 84481

== ENCOUNTER → 2019-09-02 10:32 | Outpatient (CLI) | payer OTHER, SELFPAY ==
[2019-08-26 12:48] VITALS: BMI 35.1
[2019-09-02 11:56] LABS: AST(SGOT) 18 U/L (15-37); Alanine Aminotransfer ALT/SGPT 31 U/L (13-56); Albumin, Serum 3.9 g/dL (3.2-5.0); Alkaline Phosphatase 52 U/L (45-117); Bilirubin, Direct 0.16 mg/dL (0.00-0.30); Cholesterol 192 mg/dL (200); Globulin 3.2 g/dL (2.2-4.2); High Density Lipoprotein 41 mg/dL; Protein, Total 7.1 g/dL (6.4-8.2); Triglycerides 121 mg/dL; Very Low Density Lipoprotein 24 mg/dL (5-40)
== END ==
PROVIDERS: Family Provider Internal Medicine; PCP Internal Medicine; Referring Provider Internal Medicine Cardiovascular Disease; Visit Provider Internal Medicine Cardiovascular Disease
DX: E78.00 Pure hypercholesterolemia, unspecified (principal)
CPT/HCPCS: 36415; 80061; 80076

== ENCOUNTER → 2019-09-08 09:19 | Outpatient (CLI) | payer SELFPAY, OTHER ==
[2019-08-26 12:48] VITALS: BMI 35.1
--- NOTE | 2019-09-08 09:21 | STE_ITS ---
Reason For Study: CHEST PAIN Stress Results Protocol: Hank Protocol Maximum Predicted HR: 178 bpm Target HR: 151 bpm % Maximum Predicted HR: 86 % DurationHeart Rate Stage (mm:ss) (bpm) BP Comment BASELINE 88 142/92 STAGE 1 3:00 113 140/84 STAGE 2 3:00 136 162/88SOB STAGE 3 1:07 153 / SOB, LEGS JIGGLY RECOVERY 90 122/84 Stress Duration: 7:07 mm:ss Maximum Stress HR: 153 bpm Baseline Echocardiogram Findings The estimated ejection fraction is 65 %. Stress Echo Wall motion Data Resting WM Intermediate WM Stress WM Resting Wall Motion Wall Motion Stress No regional wall motion No regional wall motion abnormalities noted. abnormalities noted. EKG Data The baseline ECG displays normal sinus rhythm. The patient exercised according to the regular Hank protocol for a total duration of 7:07. The maximum heart rate attained was 153 beats per minute. This was 85% of maximum predicted heart rate. The patient exercised into stage 3 of the Hank protocol. At peak exercise, upsloping ST changes only were noted, which did not meet the criteria for ischemia. No clinical angina was noted. No arrhythmias noted. Interpretation Summary The estimated ejection fraction is 65 %. Normal, adequate, treadmill echocardiogram. Negative for ischemia by EKG and echocardiographic criteria. No anginal symptoms noted. No arrhythmias noted. Test terminated due to the attainment target heart rate, leg discomfort and fatigue. Final LVEF is 75%. Patient tolerated the procedure well. No complications. Ordering Physician: Ranjan Perez MD Referring Physician: Ranjan Perez Performed By: Joshua Redding RCS
== END ==
PROVIDERS: Family Provider Internal Medicine; PCP Internal Medicine; Referring Provider Internal Medicine Cardiovascular Disease; Visit Provider Internal Medicine Cardiovascular Disease
DX: R07.9 Chest pain, unspecified (principal); I10 Essential (primary) hypertension; E66.9 Obesity, unspecified
CPT/HCPCS: 93017; 93350

== ENCOUNTER → 2019-09-26 20:00 | Outpatient (CLI) | payer SELFPAY, OTHER ==
[2019-08-26 12:48] VITALS: BMI 35.1
== END ==
PROVIDERS: Family Provider Internal Medicine; PCP Internal Medicine; Referring Provider Internal Medicine Cardiovascular Disease; Visit Provider Internal Medicine Cardiovascular Disease
DX: I10 Essential (primary) hypertension (principal); E66.9 Obesity, unspecified; R40.0 Somnolence; R07.9 Chest pain, unspecified
CPT/HCPCS: 95810

== ENCOUNTER → 2020-05-13 12:00 | Outpatient (CLI) | payer OTHER, SELFPAY ==
[2020-05-04 07:54] VITALS: BMI 35.3
== END ==
PROVIDERS: PCP Internal Medicine; Visit Provider Internal Medicine Critical Care Medicine
DX: G47.33 Obstructive sleep apnea (adult) (pediatric) (principal)
CPT/HCPCS: 94762

== ENCOUNTER → 2020-06-29 15:19 | Outpatient (CLI) | payer OTHER, SELFPAY ==
[2020-06-29 14:05] VITALS: BMI 36.4
[2020-06-29 17:21] LABS: Absolute Lymphocyte Count 2.96 X10^3/uL (0.83-4.51); Absolute Neutrophil Count 6.4 X10^3/uL (2.0-7.7); Basophil# 0.08 X10^3/uL; Basophil% 0.8 % (0-1); Eosinophil# 0.24 X10^3/uL; Eosinophils% 2.3 % (0-5); Hematocrit 42.6 % (37-47); Hemoglobin 14.4 g/dL (12.0-15.0); Lymphocyte # 2.96 X10^3/ul (4.0); Lymphocyte % 28.9 % (19-41); Mean Corp Hgb Conc 33.8 g/dL (32-36); Mean Corpuscular Hgb 30.4 pg (27.0-32.0); Mean Corpuscular Volume 90.1 fL (81-99); Mean Platelet Vol. 9.6 fl (6.2-12.0); Monocyte# 0.51 X10^3/uL; NRBC Flagged by Analyzer 0 % (0-5); Neutrophil # 6.42 X10^3/uL (2.7-7.7); Neutrophil % 62.7 % (47-70); Platelet Count 339 K/mm3 (150-450); RBC Distribution Width CV 11.8 % (11.6-14.6); RBC Distribution Width SD 38.4 fl (35.1-43.9); Red Blood Count 4.73 M/mm3 (4.2-5.4); White Blood Count 10.2 K/mm3 (4.4-11.0)
[2020-06-29 17:56] LABS: T3 Total - Triiodothyronine 1.06 ng/mL (0.6-1.81)
[2020-06-29 18:06] LABS: Anion Gap 6 (5-15); BUN 14 mg/dL (7-18); BUN/Creat Ratio 20.6 RATIO (10-20); Calcium,Total 9.4 mg/dL (8.5-10.1); Chloride 104 mmol/L (98-107); Creatinine, Serum 0.68 mg/dL (0.55-1.02); EST Glomerular Filtration Rate 100 mL/min (>60); Est Glom Filt Rate - Afr Amer 121 mL/min (>60); Glucose 96 mg/dL (74-106); Magnesium 2.4 mg/dL (1.6-2.6); Potassium 3.6 mmol/L (3.5-5.1); Sodium Level 138 mmol/L (136-145); T4 Free Direct 1.27 ng/dL (0.76-1.46); Thyroid Stim Hormone (TSH) 0.79 uIU/mL (0.358-3.74)
== END ==
PROVIDERS: PCP Internal Medicine; Referring Provider Nurse Practitioner Family; Visit Provider Nurse Practitioner Family
DX: R53.83 Other fatigue (principal); R07.9 Chest pain, unspecified; E03.9 Hypothyroidism, unspecified; R42 Dizziness and giddiness
CPT/HCPCS: 36415; 80048; 83735; 84439; 84443; 84480; 85025

== ENCOUNTER → 2020-08-05 12:46 | Outpatient (CLI) | payer OTHER, SELFPAY ==
[2020-08-05 11:41] VITALS: BMI 35.6
--- NOTE | 2020-08-05 13:00 | RAD_ITS ---
STUDY: X-RAY CHEST REASON FOR EXAM: Female, 44 years old. dyspnea on exertion TECHNIQUE: PA and lateral views of the chest. COMPARISON: None. FINDINGS: The lungs are clear and expanded. There is no demonstrated pleural abnormality. Normal size heart. Normal mediastinum and jody. Normal visualized pulmonary arteries. Normal visualized aortic arch and descending thoracic aorta. There are diffuse degenerative changes of the visualized thoracic spine. Normal visualized ribs, clavicles, and shoulders. There is no demonstrated abnormality of the visualized soft tissue structures of the upper abdomen. RAD/Chest PA and Lateral IMPRESSION: No acute abnormality is seen. Electronically Signed: Vic Singleton, at 15:57 EST , Service support ,
[2020-08-05 14:01] LABS: Absolute Lymphocyte Count 2.21 X10^3/uL (0.83-4.51); Absolute Neutrophil Count 5.7 X10^3/uL (2.0-7.7); Basophil# 0.05 X10^3/uL; Basophil% 0.6 % (0-1); Eosinophil# 0.07 X10^3/uL; Eosinophils% 0.8 % (0-5); Hematocrit 44.7 % (37-47); Lymphocyte # 2.21 X10^3/ul (4.0); Lymphocyte % 25.5 % (19-41); Mean Corp Hgb Conc 33.6 g/dL (32-36); Mean Corpuscular Hgb 29.7 pg (27.0-32.0); Mean Corpuscular Volume 88.5 fL (81-99); Mean Platelet Vol. 9.8 fl (6.2-12.0); Monocyte# 0.64 X10^3/uL; Monocyte% 7.4 % (0-10); NRBC Flagged by Analyzer 0 % (0-5); Neutrophil # 5.65 X10^3/uL (2.7-7.7); Neutrophil % 65.2 % (47-70); Platelet Count 361 K/mm3 (150-450); RBC Distribution Width CV 11.9 % (11.6-14.6); RBC Distribution Width SD 38.5 fl (35.1-43.9); Red Blood Count 5.05 M/mm3 (4.2-5.4); White Blood Count 8.7 K/mm3 (4.4-11.0)
[2020-08-05 14:25] LABS: ALB/GLOB Ratio 1.2 RATIO (0.9-2.4); AST(SGOT) 12 U/L (15-37); Alanine Aminotransfer ALT/SGPT 27 U/L (13-56); Albumin, Serum 4.4 g/dL (3.2-5.0); Alkaline Phosphatase 47 U/L (45-117); Anion Gap 6 (5-15); BUN 6 mg/dL (7-18); BUN/Creat Ratio 11.2 RATIO (10-20); Calcium,Total 9.6 mg/dL (8.5-10.1); Chloride 111 mmol/L (98-107); Creatinine, Serum 0.54 mg/dL (0.55-1.02); EST Glomerular Filtration Rate 132 mL/min (>60); Est Glom Filt Rate - Afr Amer 159 mL/min (>60); Globulin 3.7 g/dL (2.2-4.2); Glucose 114 mg/dL (74-106); Magnesium 2.6 mg/dL (1.6-2.6); Potassium 3.6 mmol/L (3.5-5.1); Protein, Total 8.1 g/dL (6.4-8.2); Sodium Level 141 mmol/L (136-145)
== END ==
PROVIDERS: PCP Internal Medicine; Referring Provider Nurse Practitioner Family; Visit Provider Nurse Practitioner Family
DX: R06.09 Other forms of dyspnea (principal); R53.83 Other fatigue; I34.1 Nonrheumatic mitral (valve) prolapse; I10 Essential (primary) hypertension; E03.9 Hypothyroidism, unspecified
CPT/HCPCS: 36415; 71046; 80053; 83735; 83880; 85025

== ENCOUNTER 2020-08-13 06:31 | Day surgery (SDC) | payer SELFPAY, OTHER ==
[2020-08-05 11:41] VITALS: BMI 35.6
[2020-08-12 07:34] VITALS: BMI 35.6
--- NOTE | 2020-08-13 07:00 | HP_ITS ---
HPI HPI History of Present Illness Details: Ms. Cuenca is a very pleasant 44-year-old female with a history of mitral valve prolapse, hypertension, positive family history of coronary disease in her father, chest pain, hypothyroidism treated with metoprolol succinate ER 25 mg a day and levothyroxine. Patient was admitted to [facility] on 01/15/2019 for chest pain. Her cardiac work-up was as follows: On 01/16/2019 the patient attempted a treadmill/MPI but was only able to go about 1 minute and had to stop due to shortness of breath. She had chest pain preprocedure, during the procedure and post procedure. The stress test was converted to a regadenoson on/MPI which was found to be negative with an EF around 70%. The patient then returned to the emergency room on 01/18/2019 with recurrent chest pain symptoms and was subsequently discharged home for atypical chest pain. She apparently had a negative cardiac work-up and had no risk factors for pulmonary embolism. It appears her chest pain was related to an overdose of pork thyroid, and ever since switching to levothyroxine, her symptoms have resolved since January 2019. Her symptoms then returned in July 2019 when her blood pressure began to fluctuate. She described her symptoms as chest pressure, nonradiating, with associated shortness of breath particularly when her blood pressure was quite high. 06/29/2020: She states since diagnosed with COVID-19 in March 2020 she feels that her health has declined. She states ongoing headaches that she describes as a pressure in her ears. She states she continues to have chest pain that is intermittent and is noted with exertion at times and with her headache. This has been an ongoing issue. She states ongoing dizziness and lightheadedness with activity. She states noting swollen lymph nodes. She denies lower extremity edema. She denies orthopnea or PND. 08/05/2020: She states this week she felt he heart rate to be elevated. She states last night her blood pressure was elevated and she increased her ramipril. She also noticed increase heart rate into the 120s. She states when her heart rate in 70s, she feels better. She states increase in fatigue. She states headaches. She states last night noting numbness feeling. She states over the last month she noted elevated Olinda-Pascual virus levels. She states noting throbbing left lower chest/back discomfort. She feels this as worsened with faster heart rate. She states ongoing SOB with activity that improved with cooler weather. She states with CPAP she feels suffocating. She states ongoing lightheadedness and dizziness. She states ankle edema, bilaterally. She states little stomach issues and has had a decrease in appetite. She states dark stool. Her COVID-19 testing this week was negative. She denies any fevers or chills. She denies any calf discomfort, swelling, or redness. Intake Vital Signs 08/05/20 Pulse 96 08/05/20 Pulse Source Auscultation 08/05/20 Height 5 ft 1 in 08/05/20 Weight: 189 lb 08/05/20 BMI 35.6 08/05/20 BP 169/91 H 08/05/20 Blood Pressure Location Lt brachial 08/05/20 Position Sitting 08/05/20 Respiration 18 08/05/20 Pulse 105 H 08/05/20 Pulse Source Monitor 08/05/20 Pulse Oximetry (%) 100 Intake Visit Reasons: Heart racing per [facility] Worker Required: No Is patient in pain?: Yes Allergies amoxicillin Allergy (Verified 06/29/20 14:05) Rash Penicillins [PCN] Allergy (Verified 06/29/20 14:05) Rash Medications levothyroxine 75 mcg tablet 75 mcg PO DAILY 08/25/19 [History Confirmed 08/05/20] diazepam VAGINAL 08/26/19 [History Confirmed 08/05/20] ramipril 5 mg capsule 5 mg PO QAM #90 cap 06/08/20 [Rx Confirmed 08/05/20] metoprolol succinate 25 mg tablet,extended release 24 hr 25 mg PO BID 07/09/20 [History Confirmed 08/05/20] amlodipine 2.5 mg tablet 2.5 mg PO DAILY #30 tab 08/05/20 [Rx Confirmed 08/05/20] aspirin 81 mg tablet,delayed release 81 mg PO DAILY 08/05/20 [History Confirmed 08/05/20] [facility] Medical History (Updated 06/29/20 @ 16:11 by Getachew Burgos MANAGER INPATIENT, MANAGER INPATIENT-C) CHRISTOPHER (obstructive sleep apnea) (Acute) Chest pain (Resolved) Mitral valve prolapse (Chronic) Hypertension (Chronic) Hypothyroidism (Chronic) Elevated liver enzymes (Acute) Obesity (Chronic) Surgical History History of appendectomy (Chronic) History of cholecystectomy (Chronic) History of hysterectomy (Chronic) History of repair of hiatal hernia (Chronic) History of tonsillectomy (Chronic) Family History Father CAD (coronary artery disease) Systolic and diastolic CHF, chronic S/P CABG x 3 Diabetes Stented coronary artery NSTEMI (non-ST elevated myocardial infarction) Hypertension Hyperlipidemia Obstructive sleep apnea Anemia Peripheral vascular disease Mother Hyperlipidemia Hypertension Mitral valve stenosis Obstructive sleep apnea Grandmother Stomach cancer Social History (Updated 08/05/20 @ 15:30 by Getachew Burgos MANAGER INPATIENT, MANAGER INPATIENT-C) Smoking Status: Never smoker ROS Const Const: Positive for fatigue, weakness, difficulty sleeping and poor appetite; negative for body ache, fever(s) or chills ENT ENT: Negative for dizziness Cardio Chest Pain: Yes Palpitations: Yes Edema: Bilateral Muscle aches with walking: None Resp Respiratory: Positive for SOB with activity; negative for SOB at rest, SOB orthopnea\SOB lying down, Cough or paroxysmal nocturnal dyspnea GI GI: Positive for black,tarry stools; negative nausea, vomiting blood/hematemesis or bright, red blood in stools : Negative for hematuria or frequent nighttime urination/ nocturia Musc Musc: Negative for muscle aches/ myalgia Skin Skin: Negative non-healing lesions or rash Neuro Neuro: Positive for weakness; negative for dizziness, lightheadedness, near syncope, syncope or orthostatic symptoms Endo Endo: Positive for fatigue Psych Psych: Positive for anxiety Allergy Allergy/Immunology: Negative for rash Cardiology Exam Const Appearance: cooperative, healthy appearing, comfortable and no acute distress Nutritional Appearance: well nourished and obese Orientation: alert, awake and oriented x3 Head Head: normal to inspection Ears: hearing grossly normal bilaterally Nose: external nose normal Face and Sinus: face symmetric Mouth: oral mucosae normal Eyes General: appearance normal, both eyes and all related structures Eyelids: eyelids normal EOM: EOM intact bilaterally Neck Neck: normal visual inspection and no JVD Carotids: normal carotid upstroke Chest Chest inspection: normal inspection of the chest, symmetric chest movement and normal respiratory effort; negative cough Auscultation: Bilateral: Clear to Auscultation Cardio Rate: tachycardic Rhythm: regular rhythm Heart sounds: S1 normal and S2 normal; negative rub, gallop or murmur GI GI: normal to inspection and obese Neuro General: alert, awake, oriented x3 and CN's II-XI intact bilaterally Skin Skin: no rashes or lesions noted Extremities Pulses: Normal: Right Posterior Tibial Pulse, Left Posterior Tibial Pulse, Right Radial Pulse, Left Radial Pulse Lower Extremity Edema: Trace: Bilateral Psych Psychological: normal affect Assessment & Plan 1. Dyspnea on exertion R06.00 Plan Her symptoms are very difficult to interpret. The exact etiology of her symptoms remain unclear. She was asked undergo laboratory evaluation today to help assist. She was also asked undergo radiological evaluation to help assist further. Given her diagnosis of COVID-19 exposure it raises question if her residual symptoms are result of such. Based on results of her test, further recommendation will be made. She was also asked undergo an echocardiogram to evaluate for changes most importantly to better explain shortness of breath as well as to assess for any concerning changes post exposure to COVID-19. Based results of echocardiogram, further recommendation be made Orders Orders: Comprehensive Metabolic Profil Today Magnesium Today Echo Complete Today CBC W/Diff, Automated Today BNP,B-Type NATRIURETIC PEPTIDE Today Chest PA and Lateral Today 2. Tachycardia R00.0 Plan The exact rationale of her tachycardia also remains unclear. She underwent laboratory testing previously which did not reveal any specific abnormality. She was asked to undergo repeat laboratory evaluation today especially noted black stool to assess if there is an anemic component. Based on results, further recommendation will be made. She was asked to increase her metoprolol therapy to 25 mg in the a.m. and 50 mg in the p.m. 3. Fatigue R53.83 Plan The exact etiology of her fatigue also remains unclear. Her thyroid testing in June 2020 was within normal limits. She was asked undergo repeat laboratory evaluation to assess for other changes. She does acknowledge increase in Olinda-Pascual virus check which raises some suspicion if her ongoing fatigue is related to mononucleosis. She was asked to continue to discuss with primary care physician for noncardiac etiology of her fatigue and other symptoms. Orders Orders: Comprehensive Metabolic Profil Today Magnesium Today Echo Complete Today CBC W/Diff, Automated Today BNP,B-Type NATRIURETIC PEPTIDE Today 4. Essential hypertension I10 Plan Her blood pressure is elevated today in office. She was asked to begin amlodipine 2.5 mg p.o. daily. She was also asked to continue with ramipril therapy. Hopefully, with additional medical therapy her blood pressure is controlled and her nighttime symptoms are also better controlled and thus she can sleep better. She is asked to continue to update our office on ongoing blood pressure response to better guide adjustment which may include increasing ramipril or amlodipine. Orders Orders: Comprehensive Metabolic Profil Today Magnesium Today Echo Complete Today CBC W/Diff, Automated Today BNP,B-Type NATRIURETIC PEPTIDE Today 5. Mitral valve prolapse I34.1 Per patient, but echo done 01/16/19 @ [facility] shows normal mitral valve. (Apparently, per OV note from Dr. Isai Fletcher, echo done 07/22/[address] Angeles showed mild mitral regurgitation, mild to mod tricuspid insufficiency, mild pulmonary hypertension with RVSP 34 mmhg). Plan Her most recent echocardiogram from December 2018 showed trivial mitral valve insufficiency. This appears stable on exam. She will continue current medical therapy. We will continue to monitor. Orders Orders: Comprehensive Metabolic Profil Today Magnesium Today Echo Complete Today CBC W/Diff, Automated Today BNP,B-Type NATRIURETIC PEPTIDE Today Chest PA and Lateral Today 6. CHRISTOPHER (obstructive sleep apnea) G47.33 Overall AHI 5.7 Plan She will continue to follow with pulmonology team. Plan Detail Other Orders Orders: 12 Lead EKG performed by [facility] Today R07.9 Comprehensive Metabolic Profil Today E03.9 Magnesium Today E03.9 Echo Complete Today E03.9 CBC W/Diff, Automated Today E03.9 BNP,B-Type NATRIURETIC PEPTIDE Today E03.9 Other Medications New: amlodipine 2.5 mg PO DAILY 30 tabs 11RF Discontinued: metoprolol succinate ER Discontinued Reason: Pt no longer taking 25 mg PO DAILY 0 tabs 0RF Additional Comments Thank you for allowing us to participate in the patients plan of care, if you have any questions please do not hesitate to call. This note was generated using a voice recognition system and there may be incorrect words, spelling or punctuation that were not noted when reviewing the office note prior to saving. Follow Up 1 Month (MANAGER INPATIENT/PA) Coding Level of Care Code Off vis,est,level 4 Diagnoses Dyspnea on exertion R06.00 Tachycardia R00.0 Fatigue R53.83 Essential hypertension I10 ??Hypertension type: essential hypertension Mitral valve prolapse I34.1 CHRISTOPHER (obstructive sleep apnea) G47.33 Coding Level of Care Code Off vis,est,level 4 Diagnoses Dyspnea on exertion R06.00 Tachycardia R00.0 Fatigue R53.83 Essential hypertension I10 ??Hypertension type: essential hypertension Mitral valve prolapse I34.1 CHRISTOPHER (obstructive sleep apnea) G47.33 Supplemental Info Supplemental Information Labs LDL Cholesterol 127 mg/dL (0-130) 09/02/19 HDL Cholesterol 41 mg/dL (40-) 09/02/19 Triglycerides 121 mg/dL (-199) 09/02/19 VLDL Cholesterol 24 mg/dL (5-40) 09/02/19 Diagnostics Electrocardiogram 08/05/20 Echocardiogram 01/15/19 Stress Echocardiogram 09/08/19 Stress Test Nuclear Medicine 01/16/19 Stress Test 01/16/19 Chest X-Ray 08/05/20
--- NOTE | 2020-08-13 08:32 | CL.D_ITS ---
Patient Name: LONDON CAM Study Date: 08/13/2020 Performing: Ronald Durbin MD Ht: 61.02 inches 155 cm : 1975 Wt: 189.6 lbs 86 kg Age: 44 Gender: female BSA: 1.85 PROCEDURE(S) PERFORMED [id number]/COR/LV CLINICAL PROFILE AND INDICATIONS Indications: Suspected CAD Heart Failure: None Stress/Imaging Stress/Image Study Performed: No CAD Presentations: Other: COVID previously CONCLUSIONS Normal coronary arteries Mild CMP RECOMMENDATIONS Medical therapy DESCRIPTION OF PROCEDURE The patient arrived to the procedure lab. The risks and benefits of the procedure as well as a full d escription of our services here and current unavailability of surgical backup were fully explained to the patient and/or their significant other prior to the catheterization. The Timeout was completed, verifying the correct patient and procedure. The patient's procedural site was prepped and draped in the usual fashion. Local anesthetic was given subcutaneously to right radial region with Lidocaine 2% . Using a modified Seldinger technique, arterial access was obtained via the right radial artery, a 6 Fr sheath was inserted. Right Coronary Artery selective angiography was performed in multiple views using a 5 Fr. 4.0 [place] catheter. Left Coronary Artery selective angiography was performed in multipl e views using a 5 Fr. 4.0 [place] catheter. Left Ventriculography was performed in HARPER projection using a 5 Fr. Pigtail catheter. LV to AO pullback pressures were then recorded.The arterial sheath was pulled and a TR Band was applied for hemostasis CORONARY ANGIOGRAPHY DOMINANCE: Left Dominant LEFT HEART ASSESSMENT Left Ventricular Ejection Fraction: by LV Gram 47 % Global Hypokinesis - Mild Depressed Left Ventricular systolic function LEFT MAIN: Angiographically normal LEFT ANTERIOR DESCENDING ARTERY: Angiographically normal CIRCUMFLEX ARTERY: Angiographically normal RIGHT CORONARY ARTERY: Angiographically normal COMPLICATIONS No Complications PROCEDURE MEDICATIONS Fentanyl 50 mcg IV Versed 1 mg IV Versed 1 mg IV Oxygen: 2 L/min via nasal cannula Heparin diluted in 23cc Heparinized saline. Patient given 10cc IA of this solution. 08/13/2020 08:03 :25 Verapamil 2.5mg, Ntg 100mcgs, 2000 units of Heparin diluted in 23cc Heparinized saline. Patient give n 10cc IA of this solution. 08/13/2020 08:03:25 SUMMARY OF HEMODYNAMIC DATA Time AIR REST ECG 06:56:34 ECG 06:56:40 AO 122/84 (99) SA 08:05:48 AO 120/83 (100) 08:09:26 LV 155/2, 25 08:18:20 LV 155/1, 7 08:18:26 LV 131/5, 7 08:19:09 LV 132/6, 7 08:19:15 LVp 132/7, 9 08:19:22 AOp 134/81 (104) 08:19:27 Signed By Ronald Durbin MD On 08/13/2020 08:31:47 Ronald Durbin MD
== END 2020-08-13 10:30 | disposition home or self-care (01) ==
LOC: CLSP 06:31
PROVIDERS: PCP Internal Medicine; Referring Provider Internal Medicine Cardiovascular Disease; Visit Provider Internal Medicine Cardiovascular Disease
DX: R06.00 Dyspnea, unspecified (principal); R00.0 Tachycardia, unspecified; R53.83 Other fatigue; R07.89 Other chest pain; I10 Essential (primary) hypertension; I34.1 Nonrheumatic mitral (valve) prolapse; G47.33 Obstructive sleep apnea (adult) (pediatric); E03.9 Hypothyroidism, unspecified; E66.9 Obesity, unspecified; Z68.35 Body mass index [BMI] 35.0-35.9, adult; Z79.82 Long term (current) use of aspirin; Z86.19 Personal history of other infectious and parasitic diseases; Z82.49 Family history of ischemic heart disease and other diseases of the circulatory system
CPT/HCPCS: 93458; 99152; 99153; J7040; Q9967; C1769; C1894

== ENCOUNTER → 2021-05-27 14:09 | Outpatient (CLI) | payer OTHER, SELFPAY ==
[2021-05-27 14:13] LABS: Bacteria 0 SEEN /hpf (None Seen); Mucous, Urine 0 SEEN /hpf (<or=2+); Red Blood Cells-Urine 0 SEEN /hpf (0-5); Squamous Epithelial Cells - UA 0 SEEN /hpf (5-10); White Blood Cells 0 SEEN /hpf (0-5)
[2021-05-27 14:55] LABS: Hematocrit 43.4 % (37-47); Hemoglobin 14.7 g/dL (12.0-15.0); Mean Corp Hgb Conc 33.9 g/dL (32-36); Mean Corpuscular Hgb 30.1 pg (27.0-32.0); Mean Corpuscular Volume 88.9 fL (81-99); Mean Platelet Vol. 9.6 fl (6.2-12.0); Platelet Count 320 K/mm3 (150-450); RBC Distribution Width SD 39.1 fl (35.1-43.9); Red Blood Count 4.88 M/mm3 (4.2-5.4); White Blood Count 11.4 K/mm3 (4.4-11.0)
[2021-05-27 14:56] LABS: Color, Urine Yellow (Yellow); Glucose, Dipstick Normal (Normal); Ketone-Dipstick Negative (Negative); Leukocyte Esterase-Dipstick Negative /ul (Negative); Nitrite-Dipstick Negative (Negative); Occult Blood-Urine Negative /ul (Negative); Protein-Dipstick Negative (Negative); Urine Bilirubin Dipstick Negative (Negative); Urine Clarity Clear (Clear); Urine Urobilinogen Normal (Normal); Urine pH 6.5 (5.0 - 8.0)
[2021-05-27 15:20] LABS: Anion Gap 5 (5-15); BUN 11 mg/dL (7-18); BUN/Creat Ratio 21.1 RATIO (10-20); Calcium,Total 9.9 mg/dL (8.5-10.1); Chloride 105 mmol/L (98-107); Creatinine, Serum 0.52 mg/dL (0.55-1.02); EST Glomerular Filtration Rate 135 mL/min (>60); Est Glom Filt Rate - Afr Amer 164 mL/min (>60); Glucose 99 mg/dL (74-106); Potassium 3.9 mmol/L (3.5-5.1); Sodium Level 135 mmol/L (136-145); Thyroid Stim Hormone (TSH) 0.48 uIU/mL (0.358-3.74)
== END ==
PROVIDERS: PCP Thoracic Surgery (Cardiothoracic Vascular Surgery); Referring Provider Physician Assistant Medical; Visit Provider Physician Assistant Medical
DX: I10 Essential (primary) hypertension (principal); I42.8 Other cardiomyopathies; I49.8 Other specified cardiac arrhythmias; R53.83 Other fatigue; R42 Dizziness and giddiness
CPT/HCPCS: 36415; 80048; 81001; 84443; 85027; 87086; 87088

== ENCOUNTER → 2021-06-14 08:59 | Outpatient (CLI) | payer OTHER, SELFPAY ==
--- NOTE | 2021-06-14 16:21 | PCM.TILTTABL ---
Staff Staff: Krystal Dietrich and - Summary Pre Test Resting HR: 86 Pre Test Resting BP: 157/77 Minimum Test HR: 70 Maximum Test HR: 90 Minimum Test BP: 132/72 Maximum Test BP: 158/75 Reason for Test Termination: Reached Maximum Test Time Physician Tilt Table Report Patient's Physicians Primary Care Physician: Tri Chang Indications/Diagnosis: Possible postural orthostatic tachycardia syndrome. Procedure Comments: The patient was brought to the noninvasive lab in the postabsorptive state. Initial EKG was obtained as well as blood pressure measurements. The results are as noted above. The patient was then placed in the 70? head upright position. Continuous EKG monitoring as well as heart rate was obtained. The patient was noted to maintain a stable blood pressure but describes symptoms of fingers being cool numb, weakness in the head as well as generalized wooziness. There were no EKG changes or significant blood pressure changes to suggest any orthostatic or tachycardia syndromes. Summary: Normal tilt table test with no significant hemodynamic changes.
[2021-06-14 16:25] VITALS: BP 132/72; BP 157/77; BP 158/75
== END ==
PROVIDERS: PCP Thoracic Surgery (Cardiothoracic Vascular Surgery); Referring Provider Physician Assistant Medical; Visit Provider Physician Assistant Medical
DX: R42 Dizziness and giddiness (principal); I49.8 Other specified cardiac arrhythmias
CPT/HCPCS: 93660; J7040

== ENCOUNTER → 2021-07-01 07:34 | Outpatient (CLI) | payer SELFPAY, OTHER ==
--- NOTE | 2021-07-01 07:36 | BI_ITS ---
MAMMOGRAPHY - BILATERAL SCREENING REASON FOR EXAM: Female, 45 years old. Routine annual screening examination. PERTINENT HISTORY: Non-contributory. TECHNIQUE: Digital bilateral breast farrukh (3D mammographic acquisition) in the CC and MLO projections. 2-D mediolateral oblique (MLO) and craniocaudad (CC) views of both breasts were obtained. CAD: Full Field Digital Mammography with Computer Added Detection was performed. COMPARISON: None. Baseline examination. FINDINGS: Breast Composition: There are scattered areas of fibroglandular density. There are no dominant masses or suspicious calcifications. No other significant abnormalities are identified. BI/SCRN MAMM (CAD)W/FARRUKH BILAT IMPRESSION: Negative screening mammogram. Yearly followup mammogram recommended. (A) ASSESSMENT CATEGORY: BIRADS Category 1: Negative. A letter regarding these results will be sent to the patient by the facility within 30 days. Approximately 10% of breast cancers are not detected by mammography. A normal mammogram should not delay biopsy of a clinically suspicious abnormality. [id number] Electronically Signed: Vic Singleton MD at 9:01 EDT , Service support ,
== END ==
PROVIDERS: PCP Thoracic Surgery (Cardiothoracic Vascular Surgery); Referring Provider Obstetrics & Gynecology; Visit Provider Obstetrics & Gynecology
DX: Z12.31 Encounter for screening mammogram for malignant neoplasm of breast (principal)
CPT/HCPCS: 77063; 77067

== ENCOUNTER → 2021-07-15 07:03 | Outpatient (CLI) | payer OTHER, SELFPAY | PROVIDERS: PCP Nurse Practitioner Family; Visit Provider Internal Medicine Cardiovascular Disease | DX: I10 Essential (primary) hypertension (principal); I42.8 Other cardiomyopathies; R00.2 Palpitations; R53.83 Other fatigue; R42 Dizziness and giddiness | CPT/HCPCS: 93788 ==

== ENCOUNTER → 2022-09-05 | Outpatient (CLI) | payer SELFPAY, OTHER ==
--- NOTE | 2022-09-05 08:41 | BI_ITS ---
MAMMOGRAPHY - BILATERAL SCREENING REASON FOR EXAM: Female, 46 years old. Routine annual screening examination. PERTINENT HISTORY: Grandmother with breast cancer. TECHNIQUE: Digital bilateral breast farrukh (3D mammographic acquisition) in the CC and MLO projections. 2-D mediolateral oblique (MLO) and craniocaudad (CC) views of both breasts were obtained. CAD: Full Field Digital Mammography with Computer Added Detection was performed. COMPARISON: Comparison is made with prior study dated 07/01/2021. FINDINGS: Breast Composition: There are scattered areas of fibroglandular density. There are no dominant masses or suspicious calcifications. Stable benign-appearing bilateral axillary lymph nodes. No other significant abnormalities are identified. There has been no significant change since the prior study. BI/SCRN MAMM (CAD)W/FARRUKH BILAT IMPRESSION: Stable bilateral screening mammogram. Yearly follow-up mammogram recommended. (A) ASSESSMENT CATEGORY: BIRADS Category 2: Benign. A letter regarding these results will be sent to the patient by the facility within 30 days. Approximately 10% of breast cancers are not detected by mammography. A normal mammogram should not delay biopsy of a clinically suspicious abnormality. [id number] Electronically Signed: Vic Singleton MD at 13:18 EST ,
== END | disposition home or self-care (01) ==
LOC: OPBI 08:38
PROVIDERS: PCP Nurse Practitioner Family; Visit Provider Obstetrics & Gynecology
DX: Z12.31 Encounter for screening mammogram for malignant neoplasm of breast (principal); Z80.3 Family history of malignant neoplasm of breast
CPT/HCPCS: 77063; 77067

== ENCOUNTER → 2022-11-03 | Outpatient (CLI) | payer OTHER, SELFPAY ==
[2022-11-03 10:58] LABS: Hematocrit 36.2 % (37-47); Hemoglobin 12.2 g/dL (12.0-15.0); Mean Corp Hgb Conc 33.7 g/dL (32-36); Mean Corpuscular Hgb 29.2 pg (27.0-32.0); Mean Corpuscular Volume 86.6 fL (81-99); Mean Platelet Vol. 9.4 fl (6.2-12.0); Platelet Count 301 K/mm3 (150-450); RBC Distribution Width CV 12.3 % (11.6-14.6); Red Blood Count 4.18 M/mm3 (4.2-5.4); White Blood Count 7.9 K/mm3 (4.4-11.0)
[2022-11-03 11:29] LABS: Anion Gap 9 (5-15); BUN 7 mg/dL (7-18); BUN/Creat Ratio 15.1 RATIO (10-20); Chloride 106 mmol/L (98-107); Creatinine, Serum 0.46 mg/dL (0.55-1.02); EST Glomerular Filtration Rate 154 mL/min (>60); Est Glom Filt Rate - Afr Amer 186 mL/min (>60); Glucose 112 mg/dL (74-106); Sodium Level 142 mmol/L (136-145)
== END | disposition home or self-care (01) ==
PROVIDERS: PCP Nurse Practitioner Family; Referring Provider Physician Assistant Surgical; Visit Provider Physician Assistant Surgical
DX: Z01.812 Encounter for preprocedural laboratory examination (principal); E11.9 Type 2 diabetes mellitus without complications
CPT/HCPCS: 36415; 80048; 85027